=== PATIENT | female | born 1955 | race Caucasian/White ===

== ENCOUNTER 2023-04-16 09:25 | Day surgery (SDC) | payer MEDICARE, SELFPAY ==
--- NOTE | 2023-04-13 09:40 | HO.ANESPROP2 ---
HPI - Anesthesia Eval Consult details Narrative: 67yo F for Colonoscopy PMFSH Past Medical History Medical History (Updated 04/13/23 @ 08:24 by Gin Salazar, RN) Diet-controlled diabetes mellitus Celiac disease Surgical History Surgical History (Updated 04/13/23 @ 08:26 by Gin Salazar, RN) Hx of appendectomy Hx of dilation and curettage History of esophagogastroduodenoscopy (EGD) H/O colonoscopy Meds Allergies Allergy/AdvReac Type Severity Reaction Status Date / Time No Known Allergies Allergy Verified 04/13/23 08:26 Home Medications Medication Instructions Recorded Confirmed Last Taken Type Calcium 600 + D(3) 04/13/23 04/13/23 Unknown History cholecalciferol (vitamin D3) 50 50 mcg PO DAILY 04/13/23 04/13/23 Unknown History mcg (2,000 unit) capsule (Vitamin D3) Exam Exam Date and Time: April 13, 2023 0940 Assessment and Plan Assessment Anesthesia Assessment: Chart Reviewed
[2023-04-16 09:37] VITALS: BMI 25.8
--- NOTE | 2023-04-16 10:04 | P.CONAN_ITS ---
[facility] Past Medical History Medical History Diet-controlled diabetes mellitus Celiac disease Family History Family history of problems with anesthesia: No Surgical History Surgical History Hx of appendectomy Hx of dilation and curettage History of esophagogastroduodenoscopy (EGD) H/O colonoscopy History of Problems with Anesthesia: No Social History Social History Advance Directives: No Advance Directives Information Provided: Yes Meds Allergies Allergy/AdvReac Type Severity Reaction Status Date / Time No Known Allergies Allergy Verified 04/13/23 08:26 Active Medications: Current Medications Lactated Ringer's (Lr) 1,000 mls @ 100 mls/hr IVCONT .Q10H MARISA Ondansetron HCl (Ondansetron Hcl 4 Mg/2 Ml Vial) 4 mg IVPUSH ONCE PRN PRN Reason: Nausea and Vomiting Sodium Biphosphate/Sodium Phosphate (Sodium Phosphate,[place]-Dib[place] 133 Ml Enema) 133 ml ND ONCE PRN PRN Reason: Poor Colonoscopy Prep Results Home Medications Medication Instructions Recorded Confirmed Last Taken Type Calcium 600 + D(3) 04/13/23 04/13/23 Unknown History cholecalciferol (vitamin D3) 50 50 mcg PO DAILY 04/13/23 04/13/23 Unknown History mcg (2,000 unit) capsule (Vitamin D3) Exam Exam Date and Time: April 16, 2023 1004 Height,Weight and Vital Signs: Height 5 ft 6 in Weight 72.575 kg Airway Mallampati Class: II TM Dist: >3cm Neck ROM: Full Loose/Missing/Broken Teeth: No Heart: rrr Lungs: clear Assessment and Plan Final Anesthetic Review Family History of Problems with Anesthesia: No History of Problems with Anesthesia: No NPO: Yes ASA Class: II Final Preanesthetic Review: No Changes in Pt Med Stat, Meds/Allgs Chart Reviewed, Consent Obtained/Reviewed and Anes Risks/Benef Reviewed Patient Risk: Intermediate Procedure Risk: Low Anesthetic Plan Anesthetic Plan: MAC: Disposition: Standard PACU
[2023-04-16] MEDS: Lactated Ringers 1,000 ML 100 ML IVCONT (10:17)
[2023-04-16 10:58] VITALS: BP 102/62; PULSE 69; RESP 16; TEMP 36.4; O2SAT 95
--- NOTE | 2023-04-16 11:00 | PM.OP ---
Brief Operative Note Date of Service: 04/16/23 Pre-op diagnosis: Screening Post-op diagnosis: other (Diverticulosis) Procedure: Colonoscopy to the cecum and TI Surgeon: Vj Abdalla MD Anesthesia: MAC Was an It Risk And Assurance Manager used for this Procedure?: No Estimated blood loss (mL): 0 Pathology: none sent Condition: stable Disposition: PACU
--- NOTE | 2023-04-16 11:12 | OP_ITS ---
DATE OF SERVICE: 04/16/2023 SURGEON: Vj Abdalla MD INDICATIONS: The patient presents for evaluation of colorectal cancer screening and family history of colon cancer. Full consent has been obtained from her for this, including risks of bleeding and perforation. PREOPERATIVE DIAGNOSIS: POSTOPERATIVE DIAGNOSIS: PROCEDURE PERFORMED: Colonoscopy to cecum and terminal ileum. ESTIMATED BLOOD LOSS: COMPLICATIONS: ANESTHESIA: Monitored anesthesia care. ASSISTANTS: SPECIMENS: PREOPERATIVE DIAGNOSES: Colorectal cancer screening and family history of colon cancer. POSTOPERATIVE DIAGNOSES: Colorectal cancer screening and family history of colon cancer, mild diverticulosis, and internal hemorrhoids. DESCRIPTION OF PROCEDURE: The patient was placed in the left lateral decubitus position. The digital rectal exam revealed no abnormalities. The Olympus video pediatric colonoscope was entered into the rectum and advanced easily to the cecum. Once in the cecum, I did identify normal-appearing cecal pouch with appendiceal orifice and a normal-appearing ileocecal valve. The terminal ileum was cannulated and appeared normal. The scope was withdrawn back in the colon. The entire cecum and ileocecal valve appeared normal. The scope was slowly withdrawn assessing all mucosal surfaces carefully. Preparation was excellent. I did not visualize any sign of polyps, colitis, nor angiodysplasia. There was a mild amount of sigmoid diverticulosis. In the rectum, scope was retroflexed, visualizing small internal hemorrhoids, but no other pathology. The rectal mucosa appeared normal. Scope was straightened and withdrawn from the patient. She tolerated the procedure well and was returned to the recovery area in stable condition. IMPRESSION: 1. Diverticulosis. 2. Internal hemorrhoids. PLAN: Given her family history, I would recommend a followup colonoscopy in 5 years for further screening. She will otherwise see me on a p.r.n. basis. MD HARPAL Jacobo/CHAIM / [id number]
[2023-04-16 11:13] VITALS: BP 101/68; PULSE 57; RESP 14; O2SAT 99
[2023-04-16 11:28] VITALS: BP 103/67; PULSE 59; RESP 16; TEMP 36.1; O2SAT 98
[2023-04-16 11:43] VITALS: BP 108/77; PULSE 60; RESP 14; TEMP 36.1; O2SAT 98
== END 2023-04-16 12:07 | disposition home or self-care (01) ==
PROVIDERS: PCP Family Medicine; Visit Provider Internal Medicine
PROC: 0DJD8ZZ Inspection of Lower Intestinal Tract, Via Natural or Artificial Opening Endoscopic (ICD-10-PCS; CPT 45378; principal; 2023-04-16 10:40)
DX: Z12.11 Encounter for screening for malignant neoplasm of colon (principal); K57.30 Diverticulosis of large intestine without perforation or abscess without bleeding; K64.8 Other hemorrhoids; Z80.0 Family history of malignant neoplasm of digestive organs; Z79.899 Other long term (current) drug therapy; E11.9 Type 2 diabetes mellitus without complications; K90.0 Celiac disease
CPT/HCPCS: G0105